=== PATIENT | female | born 1965 | race Hispanic/Latino ===

== ENCOUNTER 2023-10-27 11:30 | Emergency (ER) | payer BC ==
[~2023-10-27] VITALS: Ht 162.6 cm; Wt 137.9 kg
[2023-10-27 11:37] VITALS: BP 151/84; PULSE 62; RESP 16
[2023-10-27] MEDS: HYDROCODONE/ACETAMINOPHEN 5/325 MG TAB PO ONE (14:24)
[2023-10-27] MEDS ORDERED: IBUP-2070 PO (14:49)
== END 2023-10-27 15:52 | disposition home or self-care (01) ==
LOC: EDH 11:30
DX: S92.512A Displaced fracture of proximal phalanx of left lesser toe(s), initial encounter for closed fracture (principal); I10 Essential (primary) hypertension; J45.909 Unspecified asthma, uncomplicated; Z98.890 Other specified postprocedural states; Z88.0 Allergy status to penicillin; Z88.8 Allergy status to other drugs, medicaments and biological substances; W22.8XXA Striking against or struck by other objects, initial encounter; Y93.89 Activity, other specified; Y92.89 Other specified places as the place of occurrence of the external cause; Y99.8 Other external cause status
CPT/HCPCS: 29515; 73620

== ENCOUNTER → 2024-11-10 | Outpatient (CLI) | payer OTHER ==
[~2024-11-10] MED LIST: IBUP-2070 PO
--- NOTE | 2024-11-10 16:26 | HMCIMG ---
CT calcium scoring Clinical Information: [facility] SCREENING Comparison: None CT Dose Index (CTDI): 13.30 mGy Dose Length Product (DLP): 186.18 total mGy-cm Findings: Calcium score 51.4. Mild calcification. The CT scan is not a complete chest CT. Covered portion is reviewed for incidental findings. No incidental findings seen. IMPRESSION: Calcium score as above. Calcium score reference stable: 0: No identifiable calcification 1- 10: Minimal identifiable calcification 11-100: Mild calcification 101- 400: Moderate calcification 401 and above: Significant calcification Automated exposure control and adequate statistical iterative reconstructions were utilized as dose reduction techniques.
== END | disposition home or self-care (01) ==
LOC: RAH 15:40
PROVIDERS: ATTEND Internal Medicine
DX: Z13.6 Encounter for screening for cardiovascular disorders (principal)
CPT/HCPCS: 75571

== ENCOUNTER → 2024-12-09 | Outpatient (CLI) | payer BC ==
--- NOTE | 2024-12-09 16:17 | HMCIMG ---
MR SPINAL CANAL, LUMBAR WO CON HISTORY: No additional history given. COMPARISON: None TECHNIQUE: MRI of the lumbar spine was performed utilizing multiple pulse sequences in axial , coronal and sagittal plane. Patient was not given contrast through intravenous route. FINDINGS: Heterogeneous signal intensity is seen of the visualized bony structure. No loss of vertebral height is seen. There is straightening of normal lumbar curvature which may be related to muscle spasm or positioning. Degenerative disc signals are present at all lumbar spine levels. Visualized distal conus is unremarkable. At the L1-L2 level, there is spondylotic disc with bilateral ligamentum flavum hypertrophy causing anterior thecal sac compression with bilateral lateral recess stenosis and bilateral neural foraminal stenosis. The thecal sac measures approximately 5.6 mm in its anterior posterior dimension. At the L2-L3 level, there is spondylotic disc with bilateral ligamentum flavum hypertrophy causing anterior thecal sac compression with bilateral lateral recess stenosis and bilateral neural foraminal stenosis. The thecal sac measures approximately 4.7 mm in its anterior posterior dimension. At the L3-L4 level, there is spondylotic disc with bilateral ligamentum flavum hypertrophy causing anterior thecal sac compression with bilateral lateral recess stenosis and bilateral neural foraminal stenosis. The thecal sac measures approximately 3.8 mm in its anterior posterior dimension. At the L4-L5 level, there is spondylotic disc with bilateral ligamentum flavum hypertrophy causing anterior thecal sac compression with bilateral lateral recess stenosis and bilateral neural foraminal stenosis. The thecal sac measures approximately 4.1 mm in its anterior posterior dimension. At the L5-S1 level, there is spondylotic disc with bilateral ligamentum flavum hypertrophy causing anterior thecal sac compression with bilateral lateral recess stenosis and bilateral neural foraminal stenosis. The thecal sac measures approximately 6.8 mm in its anterior posterior dimension. IMPRESSION: 1. DJD of the lumbar spine spondylosis with central canal narrowing.
== END | disposition home or self-care (01) ==
LOC: RAH 14:08
PROVIDERS: ATTEND Internal Medicine
DX: M47.816 Spondylosis without myelopathy or radiculopathy, lumbar region (principal); M48.061 Spinal stenosis, lumbar region without neurogenic claudication; M47.817 Spondylosis without myelopathy or radiculopathy, lumbosacral region; M43.16 Spondylolisthesis, lumbar region; M54.31 Sciatica, right side; M54.50 Low back pain, unspecified
CPT/HCPCS: 72148

== ENCOUNTER → 2024-12-15 | Outpatient (CLI) | payer BC ==
--- NOTE | 2024-12-15 11:23 | HMCIMG ---
LUMBAR SPINE RADIOGRAPHS -6 VIEWS INDICATION: Radiculopathy, spondylolisthesis, spinal stenosis COMPARISON: None FINDINGS: Normal lordotic curvature of the lumbar spine is maintained. Five nonrib-bearing lumbar vertebral bodies are noted. No acute fracture or subluxation identified. Vertebral body heights are well-maintained. Multilevel mild to moderate anterior endplate osteophytic spurring. Moderate disc height loss at L5-S1 level greater than L4-L5 level and mild disc height loss at the L3-L4 level. Multilevel mild to moderate facet disease is most pronounced at the lower lumbar spine levels, and secondary low-grade (6 mm) subluxation of L4 upon L5 on the extension view and low-grade (8 mm) on the flexion view. No radiographic evidence for spondylolysis. IMPRESSION: Nonfixed low-grade subluxation of L4 upon L5 as described.
== END | disposition home or self-care (01) ==
LOC: RAH 10:04
PROVIDERS: ATTEND Physician Assistant
DX: S33.140A Subluxation of L4/L5 lumbar vertebra, initial encounter (principal); M47.26 Other spondylosis with radiculopathy, lumbar region; M48.061 Spinal stenosis, lumbar region without neurogenic claudication; M46.06 Spinal enthesopathy, lumbar region; M25.78 Osteophyte, vertebrae; R29.890 Loss of height; X58.XXXA Exposure to other specified factors, initial encounter; Y93.89 Activity, other specified; Y92.89 Other specified places as the place of occurrence of the external cause; Y99.8 Other external cause status
CPT/HCPCS: 72110